=== PATIENT | female | born 1970 | race African-American/Black ===

== ENCOUNTER 2020-02-29 18:58 | Emergency (ER) | payer OTHER ==
--- NOTE | 2020-02-29 19:06 | PDOC ---
Rapid Medical Evaluation Time Seen by Provider: 02/29/20 18:59 Medical Evaluation: 02/29/20 18:59 49 year old female requesting STD testing and treatment. States had STD and they have been intimate. PE: Deferred Plan: Testing and treatment Pt to precede to ER for further management and care 02/29/20 19:09
[2020-02-29] MEDS ORDERED: AZITHROMYCIN 500 MG TABLET PO ONE (19:08)
[2020-02-29 19:11] VITALS: BP 110/67; PULSE 74; TEMP 98.2; BMI 25.0
--- NOTE | 2020-02-29 19:43 | PDOC ---
History of Present Illness - General Stated Complaint: STD TESTING Time Seen by Provider: 02/29/20 18:59 History Source: Patient Exam Limitations: Clinical Condition - History of Present Illness Initial Comments: 02/29/20 19:39 Patient with no significant past medical history present for STD testing and prophylactic treatment status post presented early on with penile discharge which he was treated empirically for gonorrhea and chlamydia. Patient denies any vaginal discharge, dysuria, burning with urination, rash or genital lesions. Patient denies any symptoms. Patient wanted to be tested for gonorrhea and chlamydia just as the Is this a multiple visit Asthma Patient?: No Past History - Medical History Allergies/Adverse Reactions: Allergies Allergy/AdvReac Type Severity Reaction Status Date / Time No Known Allergies Allergy Verified 02/29/20 19:10 Asthma: Yes COPD: No Other medical history: MS - Psycho-Social/Smoking History Smoking History: Current every day smoker Number of Cigarettes Smoked Daily: 1 Information on smoking cessation initiated: No - Substance Abuse Hx (Audit-C & DAST Scrn) How often the patient has a drink containing alcohol: Never Score: In Men: 4 or > Positive; In Women: 3 or > Positive: 0 Screen Result (Pos requires Nsg. Audit-10AR): Negative In the last yr the pt used illegal drug/Rx for NonMed reason: Yes Score: Yes response is considered Positive: 1 Screen Result (Positive result requires Nsg. DAST-10): Positive Review of Systems - Review of Systems Able to Perform ROS?: Yes Is the patient limited Mal[place]ian proficient: No Constitutional: No: Chills, Fever, Malaise HEENTM: No: Symptoms Reported Respiratory: No: Symptoms reported Cardiac (ROS): No: Symptoms Reported ABD/GI: No: Symptoms Reported, Nausea, Vomiting : No: Symptoms Reported, See HPI, Dysuria, Discharge, Urgency All Other Systems: Reviewed and Negative *Physical Exam - Vital Signs Last Vital Signs Temp Pulse Resp BP Pulse Ox 98.2 F 74 19 110/67 98 02/29/20 19:08 02/29/20 19:08 02/29/20 19:08 02/29/20 19:08 02/29/20 19:08 - Physical Exam General Appearance: Yes: Nourished, Appropriately Dressed. No: Apparent Distress HEENT: positive: Normal ENT Inspection Respiratory/Chest: negative: Respiratory Distress, Accessory Muscle Use Gastrointestinal/Abdominal: positive: Normal Bowel Sounds, Flat. negative: Tender Musculoskeletal: positive: Normal Inspection Extremity: positive: Normal Capillary Refill, Normal Inspection Integumentary: positive: Normal Color Neurologic: positive: Fully Oriented, Alert, Normal Mood/Affect, Normal Response Medical Decision Making - Medical Decision Making 02/29/20 19:40 Patient with no significant past medical history present for STD testing and prophylactic treatment status post presented early on with penile discharge which he was treated empirically for gonorrhea and chlamydia. Patient denies any vaginal discharge, dysuria, burning with urination, rash or genital lesions. Patient denies any symptoms. Patient wanted to be tested for gonorrhea and chlamydia just as the Patient in no acute distress and afebrile. GC and chlamydia tests lab signs as per patient request. Patient to be treated empirically with ceftriaxone 250 mg IM azithromycin 1 g p.o. pending urine gonorrhea and chlamydia test. Patient presented with was particular earlier today, advised both refrain from unprotected sex for at least 4 weeks. Patient stable for discharge with follow- up with her PCP Discharge - Discharge Information Problems reviewed: Yes Clinical Impression/Diagnosis: Screen for STD (sexually transmitted disease) Condition: Stable Disposition: HOME - Admission No - Follow up/Referral Referrals: Stef Randhawa [Primary Care Provider] - - Patient Discharge Instructions Patient Printed Discharge Instructions: How to Detect and Treat STDs Additional Instructions: You were treated today for gonorrhea and chlamydia empirically. You will be contacted in a few days with lab result. Follow-up with your primary care or [facility] if any symptoms - Post Discharge Activity
[2020-02-29] MEDS ORDERED: AZITHROMYCIN 500 MG TABLET ONE (19:48)
[2020-02-29 20:09] LABS: PH,URINE 5.5 (5.0-8.0); URINE APPEARANCE CLEAR; URINE BILIRUBIN NEGATIVE (NEGATIVE); URINE COLOR YELLOW; URINE GLUCOSE (UA) NEGATIVE (NEGATIVE); URINE KETONE TRACE (NEGATIVE); URINE LEUK ESTERASE NEGATIVE (NEGATIVE); URINE NITRITE NEGATIVE (NEGATIVE); URINE PROTEIN NEGATIVE (NEGATIVE); URINE UROBILINOGEN 0.2 mg/dL (0.2-1.0)
== END 2020-02-29 19:59 | disposition home or self-care (01) ==
LOC: JERFT 18:58 → JER 18:58 → JERFT 19:59
PROC: 3E0234Z Introduction of Serum, Toxoid and Vaccine into Muscle, Percutaneous Approach (ICD-10-PCS; principal; 2020-02-29)
DX: Z11.3 Encounter for screening for infections with a predominantly sexual mode of transmission (principal)
CPT/HCPCS: 36415; 81003; 87086; 87491; 87591; 99284-25

== ENCOUNTER 2025-04-30 19:42 | Emergency (ER) | payer OTHER ==
[2025-04-30 20:00] VITALS: BP 132/81; PULSE 70; RESP 20; TEMP 98.3; BMI 25.9
[2025-04-30] MEDS ORDERED: IBUPROFEN 400 MG TABLET (FP) PO ONE (20:31)
[2025-04-30] MEDS: IBUPROFEN 400 MG TABLET (FP) PO ONE (20:42)
== END 2025-04-30 22:07 | disposition home or self-care (01) ==
LOC: JER 19:42
DX: M25.511 Pain in right shoulder (principal); V23.49XA Other motorcycle driver injured in collision with car, pick-up truck or van in traffic accident, initial encounter; Y92.410 Unspecified street and highway as the place of occurrence of the external cause
CPT/HCPCS: 70450-TC; 73030-TC-RT-FY; 99284-25